=== PATIENT | female | born 1965 | race African-American/Black ===

== ENCOUNTER 2018-07-05 16:39 | Emergency (ER) | payer BC ==
[~2018-07-05] VITALS: Ht 154.9 cm; Wt 99.8 kg
[2018-07-05] MEDS ORDERED: VENTOLIN HFA 1818 GM INH (17:02)
[2018-07-05] MEDS ORDERED: COZAAR 25 MG TA25 M1 PO (17:03)
[2018-07-05] MEDS ORDERED: HYDROCORTISONE30 G9 TOP (17:03)
[2018-07-05] MEDS ORDERED: UNICOMPLEX M TA1 TA1 PO (17:04)
[2018-07-05] MEDS ORDERED: NORVASC5 MG PO (17:04)
[2018-07-05] MEDS ORDERED: ASPIR 8181 MG PO (17:04)
[2018-07-05] MEDS ORDERED: TOPROL XL25 MG PO (17:04)
[2018-07-05] MEDS ORDERED: LOSARTAN-HCTZ1 EAC1 PO (17:04)
[2018-07-05 17:46] LABS: ABSOLUTE NEUTROPHILS 3.5 thou/uL (1.4-8.2); BASOPHILS 0.9 % (0.0-2.0); EOSINOPHILS 3.9 % (0.0-3.0); HEMOGLOBIN 12.7 gm/dL (12.0-15.0); LYMPHOCYTES 38.3 % (24.0-44.0); MCH 27.9 pg (26.0-34.0); MCHC 32.5 g/dL (28.0-37.0); MCV 85.9 fL (80.0-100.0); MONOCYTES 10.5 % (1.0-8.0); PLATELET COUNT 252 thou/uL (150-400); POLYS 46.4 % (36.0-66.0); RBC 4.54 mil/uL (4.20-5.00); RDW 13.9 % (10.5-14.5); WBC 7.6 thou/uL (4.0-11.0)
[2018-07-05 17:54] LABS: ANION GAP 7 mmol/L (7-16); BUN 13 mg/dL (7-18); CALCIUM 9.9 mg/dL (8.5-10.1); CHLORIDE 105 mmol/L (98-107); CO2 27 mmol/L (21-32); CREATININE 1.1 mg/dL (0.6-1.0); GLUCOSE 174 mg/dL (74-106); POTASSIUM 3.9 mmol/L (3.5-5.1); SODIUM 139 mmol/L (136-145)
[2018-07-05 18:02] LABS: TROPONIN-I <0.06 ng/mL (<0.06)
[2018-07-05] MEDS ORDERED: MEDROLDOSEPACK PO (18:08)
[2018-07-05 18:22] VITALS: BP 143/73
--- NOTE | 2018-07-06 07:38 | EKG ---
[place] [address] [facility] [place] [address] ELECTROCARDIOGRAM REPORT Name: JOSE D WALTER Room #: [facility] [id number] ������������������ Admission: 07/05/18 ������������������ Attend Phys: Discharge: 07/05/18 ������������������ Date of : 61 Report #: [id number] ����������������������������������������������������������������� [id number] THIS REPORT FOR: //name// [facility] ED Test Date: 2018-07-05 Test Time: 17:20:24 Pat Name: JOSE D WALTER Department: Room: Gender: F Deputy City Clerk: helena : 1965 Requested By: Joe Velasquez Order Number: [id number] MD: Philip Bose Measurements Intervals [place] Rate: 81 P: 55 UT: 150 QRS: 12 QRSD: 79 T: -13 QT: 351 QTc: 408 Interpretive Statements Sinus rhythm Borderline T abnormalities Baseline wander in lead(s) V6 No previous ECG available for comparison Electronically Signed On 07-06-2018 7:38:29 CDT by Philip Bose [email or web address] ��������������������������������������������� <ELECTRONICALLY SIGNED> ���������������������������������������� By: Philip Bose MD, [facility] ��������������������������������������������� 07/06/18 0738 1720 1720 Philip Bose MD, FACC /EPI
== END 2018-07-05 18:22 | disposition home or self-care (01) ==
LOC: ER 16:39
PROVIDERS: Emergency Medicine
DX: R06.00 Dyspnea, unspecified (principal); R21 Rash and other nonspecific skin eruption; I10 Essential (primary) hypertension; E11.9 Type 2 diabetes mellitus without complications; Z88.2 Allergy status to sulfonamides